=== PATIENT | female | born 1995 | race Caucasian/White ===

== ENCOUNTER → 2021-09-25 | Day surgery (SDC) | payer OTHER ==
[~2021-09-25] MED LIST: KEFLEX CAP 500500 MG PO; KEFLEX500 MG PO; METOPROLOL SUCC50 MG PO; NAPROSYN500 MG PO
== END | disposition home or self-care (01) ==
LOC: OR 07:03
DX: K29.50 Unspecified chronic gastritis without bleeding (principal); K21.00 Gastro-esophageal reflux disease with esophagitis, without bleeding; R19.7 Diarrhea, unspecified; Z88.8 Allergy status to other drugs, medicaments and biological substances; K60.2 Anal fissure, unspecified; Z20.822 Contact with and (suspected) exposure to COVID-19
CPT/HCPCS: 84703; J2250; J2704; J3010; J7040; U0002